=== PATIENT | female | born 2000 | race Two or more races ===

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

== ENCOUNTER → 2018-01-14 | Emergency (ER) | payer OTHER ==
[~2018-01-14] VITALS: Ht 162.6 cm; Wt 60.3 kg
[~2018-01-14] MED LIST: LAMICTAL XR25 MG PO
== END | disposition home or self-care (01) ==
LOC: ER 14:28
DX: J22 Unspecified acute lower respiratory infection (principal); E86.0 Dehydration; J11.1 Influenza due to unidentified influenza virus with other respiratory manifestations

== ENCOUNTER → 2018-01-17 07:51 | Outpatient (CLI) | payer OTHER | END | disposition home or self-care (01) | LOC: LAB 07:51 | DX: G40.89 Other seizures (principal); R42 Dizziness and giddiness ==

== ENCOUNTER 2018-02-27 00:27 | Emergency (ER) | payer OTHER ==
[~2018-02-27] VITALS: Ht 162.6 cm; Wt 63.0 kg
== END 2018-02-27 05:02 | disposition home or self-care (01) ==
LOC: ER 00:27
DX: R53.81 Other malaise (principal)